=== PATIENT | male | born 1975 | race Caucasian/White ===

== ENCOUNTER 2023-07-12 20:41 | Emergency (ER) | payer OTHER ==
[2023-07-12 20:47] VITALS: BP 165/100; PULSE 102; RESP 16; TEMP 97.9; BMI 41.5
== END 2023-07-12 21:30 | disposition home or self-care (01) ==
LOC: JERFT 20:41
DX: S69.92XA Unspecified injury of left wrist, hand and finger(s), initial encounter (principal); X50.1XXA Overexertion from prolonged static or awkward postures, initial encounter
CPT/HCPCS: 73110-TC-LT-FY; 99283-25